=== PATIENT | female | born 1960 | race Asian ===

== ENCOUNTER → 2017-02-15 | Outpatient (CLI) | payer OTHER ==
[~2017-02-15] MED LIST: HYDR12.530 PO
== END | disposition home or self-care (01) ==
LOC: EMPHLTH 09:17
PROVIDERS: ATTEND Internal Medicine
DX: R76.11 Nonspecific reaction to tuberculin skin test without active tuberculosis (principal)

== ENCOUNTER 2020-12-04 13:58 | Emergency (ER) | payer OTHER ==
[~2020-12-04] VITALS: Ht 152.4 cm; Wt 73.0 kg
[2020-12-04] MEDS ORDERED: SODIUM CHLORIDE 0.9% 1,000 ML IV ONE (15:00)
[2020-12-04] MEDS ORDERED: MECLIZINE HCL 25 MG TABLET PO ONE (15:00)
[2020-12-04 15:19] LABS: BASOPHILS % (AUTO) 0.6 % (0.0-2.0); EOSINOPHILS % (AUTO) 0.7 % (1.0-6.0); HEMATOCRIT 39.6 % (36-46); HEMOGLOBIN 13.6 g/dL (12.0-16.0); LYMPHOCYTES # (AUTO) 2.8 K/uL (1.0-4.8); LYMPHOCYTES % (AUTO) 36.3 % (22.0-44.0); MEAN CORPUSCULAR HEMOGLOBIN 30.1 pg (26.0-34.0); MEAN CORPUSCULAR HGB CONC 34.3 G/dL (31.0-37.0); MEAN CORPUSCULAR VOLUME 88 fL (80-100); MONOCYTES # (AUTO) 0.6 K/uL (0.1-1.0); MONOCYTES % (AUTO) 7.4 % (2.0-9.0); NEUTROPHILS # (AUTO) 4.3 K/uL (1.8-7.7); PLATELET COUNT (AUTO) 243 K/uL (150-450); RED BLOOD CELL COUNT(AUTO) 4.52 MIL/uL (4.00-5.20); RED CELL DISTRIBUTION WIDTH 12.7 % (11.5-14.5)
[2020-12-04 15:28] LABS: ANION GAP 9 mmol/L (8-16); CALCIUM, TOTAL 9.2 mg/dL (8.8-10.5); CARBON DIOXIDE 27 mmol/L (22-29); CHLORIDE 103 mmol/L (98-107); CREATININE 0.74 mg/dL (0.60-1.30); GLOMERULAR FILTR. RATE CALC > 60 mL/min (>60); GLUCOSE,RANDOM 112 mg/dL (70-110); POTASSIUM 3.7 mmol/L (3.5-5.1); SODIUM SERUM 139 mmol/L (136-145); UREA NITROGEN, BLOOD 13 mg/dL (7-18)
[2020-12-04 15:36] LABS: ALANINE AMINOTRANSFERASE 41 U/L (12-78); ALBUMIN 3.9 g/dL (3.4-5.0); ALKALINE PHOSPHATASE 115 U/L (46-116); ASPARTATE AMINOTRANSFERASE 22 U/L (15-37); BILIRUBIN,TOTAL 0.3 mg/dL (0.1-1.0); CREATINE KINASE, TOTAL ONLY 118 U/L (26-192); LIPASE 156 U/L (73-393); TOTAL PROTEIN, SERUM 7.8 g/dL (6.4-8.2)
[2020-12-04 15:41] LABS: B-TYPE NATRIURETIC PEPTIDE 86 pg/mL (0-100)
[2020-12-04] MEDS ORDERED: IOHEXOL 350 MG/ML 100 ML VIAL ONE (16:18)
[2020-12-04] MEDS ORDERED: SODIUM CHLORIDE 0.9% 100 ML ONE (16:18)
[2020-12-04] MEDS ORDERED: LORazepam 2 MG/ML VIAL IVP ONE (17:45)
[2020-12-04 20:20] VITALS: BP 134/88
== END 2020-12-04 20:32 | disposition home or self-care (01) ==
LOC: EMS 14:01
DX: R42 Dizziness and giddiness (principal); I10 Essential (primary) hypertension; Z79.899 Other long term (current) drug therapy
CPT/HCPCS: 70450; 70496; 70498; 80053; 82550; 83690; 83735; 83880; 84484; 85025; 93005; 96361; 96374; 99285; A9575; J2060; J7030; J7050

== ENCOUNTER → 2021-02-13 | Outpatient (CLI) | payer OTHER | END | disposition home or self-care (01) | LOC: RADMN 09:27 | PROVIDERS: ATTEND Internal Medicine | DX: R91.8 Other nonspecific abnormal finding of lung field (principal); R76.11 Nonspecific reaction to tuberculin skin test without active tuberculosis | CPT/HCPCS: 71045 ==